=== PATIENT | male | born 1930 | race Caucasian/White ===

== ENCOUNTER 2017-11-23 23:38 | Inpatient (IN) | payer OTHER ==
[2017-11-24 00:30] LABS: Arterial Blood Carboxyhemoglob 0.4 % (0-1.5); Blood Gas Oxyhemoglobin 97.9 % (94-97); Blood O2 Saturation 99.3 % (92-98.5)
--- NOTE | 2017-11-24 01:47 | ER ---
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 Transition of care: patient was not received from another setting of care. Onset of symptoms was November 24, 2017. Risk Assessment: Do you want to hurt yourself or someone else? Patient reports no desire to harm self or others. Initial Sepsis Screen: Does the patient meet any 2 criteria? No. Patient's initial sepsis screen is negative. Does the patient have a suspected source of infection? No. Patient's initial sepsis screen is negative. Care prior to arrival: Medication(s) given: Normal saline infusion, 500 mL, IV initiated. 20 GA, in the left forearm, Oxygen administered. via a non-rebreather mask. 23:30 Method Of Arrival: EMS: [facility] lp1 23:30 Acuity: ADAM 1 lp1 Historical: - Allergies: 11/24 00:26 PENICILLINS; lp1 - Home Meds: 02:56 None [Active]; lp1 - PMHx: 00:26 hypercalcemia; hypotension; LYMPHOMA; lp1 - PSHx: 00:26 Unable to obtain; lp1 - Immunization history:: Adult Immunizations up to date. - Family history:: not pertinent. - Social history:: Smoking status: Patient/guardian denies using tobacco. - Ebola Screening: : No symptoms or risks identified at this time. Screenin:19 Abuse screen: Denies threats or abuse. Denies injuries from another. Nutritional lp1 screening: No deficits noted. Tuberculosis screening: No symptoms or risk factors identified. Fall Risk Total Aaron Fall Scale indicates High Risk Score (45 or more points). Fall prevention measures have been instituted. Side Rails Up X 2 Frequent Obs/Assessments Occuring Family Present and informed to notify staff if the need to leave the bedside As available patient and family educated on Fall Prevention Program and Strategies. Assessment: 00:20 General: Appears ill, unkempt, cachectic, Behavior is unresponsive. Pain: Unable to use lp1 pain scale. Patient is disoriented. responsive to painful stimuli. Neuro: Level of Consciousness is unresponsive, Pupils are PERRLA, sluggish. Cardiovascular: Capillary refill is > 3 seconds is sluggish in bilateral fingers toes. Respiratory: Respiratory effort is even, Respiratory pattern is agonal Breath sounds are clear bilaterally. GI: Abdomen is flat. : No deficits noted. EENT: No deficits noted. Derm: Skin with poor turgor has blisters on Large blister noted to left hip, frail skin Skin is dry, Skin is mottled, pale, Skin temperature is cold. Musculoskeletal: Range of motion: limited in left knee and right knee. 01:30 Reassessment: Patient appears in no apparent distress at this time. No changes from lp1 previously documented assessment. Patient and/or family updated on plan of care and expected duration. Pain level reassessed. 03:04 Reassessment: Patient responsive to voice at this time, nodding yes and no; Patient's lp1 granddaughter and friend are at bedside. 04:15 Reassessment: Patient seems to be uncomfortable at this time; Moaning out loud, unable lp1 to state needs. 05:00 Reassessment: Patient appears in no apparent distress at this time. Patient seems to be lp1 resting, comfortably; Family left at this time; States, Robert, the son patient lives with will come in the morning, phone number is [phone]. 05:00 Neuro: Level of Consciousness is awake. Respiratory: Respiratory effort is even, lp1 Respiratory pattern is regular. Derm: Skin is pale, Skin temperature is warm. Vital Signs: 11/23 23:40 BP 64 / 36; Pulse 67; Resp 19; Temp 89.4(R); Pulse Ox 91% on 15% Non-rebreather mask; lp1 Weight 38.56 kg; 23:50 BP 77 / 39; Pulse 67; Resp 19; Pulse Ox 92% on 15% Non-rebreather mask; lp1 11/24 00:10 BP 77 / 42; Pulse 65; Resp 18; Pulse Ox 99% on 15% Non-rebreather mask; lp1 00:47 BP 78 / 55; Pulse 62; Resp 18; Temp 87.6(R); Pulse Ox 90% on 15% Non-rebreather mask; mt 01:00 BP 70 / 43; Pulse 72; Resp 17; Pulse Ox 88% on 15% Non-rebreather mask; lp1 01:44 BP 64 / 40; Pulse 60; Resp 14; Temp 86.4(C); Pulse Ox 84% on 15% Non-rebreather mask; mt 02:30 BP 80 / 30; Pulse 60; Resp 19; Temp 86.3(C); Pulse Ox 98% on 15% Non-rebreather mask; lp1 02:45 BP 75 / 43; Pulse 69; Resp 18; Temp 86.4(C); Pulse Ox 96% on 15% Non-rebreather mask; lp1 03:02 BP 92 / 47; Pulse 72; Resp 16; Temp 86.7(C); Pulse Ox 95% on 15% Non-rebreather mask; lp1 03:30 BP 98 / 61; Pulse 77; Resp 17; Temp 87.4(C); Pulse Ox 100% on 15% Non-rebreather mask; lp1 03:45 BP 90 / 50; Pulse 100; Resp 22; Temp 87.9(C); Pulse Ox 96% on 15% Non-rebreather mask; lp1 04:09 BP 100 / 46; Pulse 89; Resp 18; Temp 88.8; Pulse Ox 94% on 15% Non-rebreather mask; mt 04:15 BP 100 / 42; Pulse 89; Resp 19; Temp 88.8(C); Pulse Ox 100% on 15% Non-rebreather mask; lp1 04:45 BP 108 / 47; Pulse 96; Resp 19; Temp 89.7(C); Pulse Ox 100% on 15% Non-rebreather mask; lp1 05:15 BP 106 / 46; Pulse 102; Resp 20; Temp 90.6(C); Pulse Ox 100% on R/A; lp1 [place] Coma Score: 11/23 23:40 Eye Response: to pain(2). Verbal Response: incomprehensible(2). Motor Response: lp1 withdraws from pain(4). Total: 8. 11/24 03:01 Eye Response: to voice(3). Verbal Response: incomprehensible(2). Motor Response: lp1 withdraws from pain(4). Total: 9. ED Course: 11/23 23:55 Patient arrived in ED. ms 23:55 Riki Dickinson MD is Attending Physician. [facility] 11/24 00:00 Maintain EMS IV. Dressing intact. Site clean \T\ dry. Gauge \T\ site: 20g left forearm. lp 1 00:00 Thermoregulation: Arash blanket applied. lp1 00:13 Charla Obregon, SUNIL is Primary Nurse. lp1 00:13 Liz cath inserted, using sterile technique, 16 Fr., by manager sharepoint, balloon inflated, to lp1 gravity drainage. 00:17 Triage completed. lp1 00:17 Arm band placed on right wrist. lp1 00:20 Missed attempt(s): 20 gauge in right forearm. Missed attempt(s): 22 gauge in right lp1 forearm. Missed attempt(s): 20 gauge in right antecubital area. 00:25 X-ray completed. Portable x-ray completed in exam room. Patient tolerated procedure kw well. 00:25 XRAY Chest (1 view) In Process Unspecified. EDMS 00:26 Patient has correct armband on for positive identification. Placed in gown. Bed in low lp1 position. Side rails up X2. national park ranger on. Pulse ox on. NIBP on. 01:45 Monica Arriaga MD is Hospitalizing Provider. [facility] 01:45 Inserted saline lock: 22 gauge in left ,using aseptic technique. ankle; By Dorothea lp1 LEXIE Richard. 02:42 Notified ED physician of a critical lab result(s). potassium of 7.1, Bicarb 7.0, bb Creatinine 7.70, Ca 6.8, CKMB 39. Dr Dickinson notified. 02:56 No provider procedures requiring assistance completed. Patient admitted, IV remains in lp1 place. 04:09 NGT: inserted 12 Fr. via right nare. verified placement of air over stomach, Placement bs1 verified by X-ray. 04:20 X-ray completed. Portable x-ray completed in exam room. Patient tolerated procedure kw well. Administered Medications: 02:10 Drug: Cefepime 2 grams Route: IVPB; Rate: 200 ml/hr; Infused Over: 30 mins; Site: left bb forearm; 02:54 Follow up: IV Status: Completed infusion; IV Intake: 100ml lp1 02:10 Drug: NS 0.9% (30 ml/kg) 30 ml/kg Route: IV; Rate: bolus; Site: left forearm; bb 02:54 Follow up: IV Status: Completed infusion; IV Intake: 1000ml lp1 02:10 Drug: SOLU-Medrol 125 mg Route: IVP; Site: left forearm; bb 02:54 Follow up: Response: No adverse reaction lp1 02:12 Drug: Albuterol - atroVENT (3:1) (2.5 mg - 0.5 mg) 3 ml Route: Nebulizer; bb 02:55 Follow up: Response: No adverse reaction; Marked relief of symptoms lp1 02:15 Drug: D5W 1000 ml, Sodium Bicarbonate 150 mEq {Note: left lower extremity.} Route: IV; bb Rate: 100 ml/hr; Site: Other; 02:55 Follow up: IV Status: Infusion continued upon admission lp1 02:54 Drug: vancoMYCIN 1 grams Route: IVPB; Infused Over: 2 hrs; Site: left forearm; lp1 02:55 Follow up: IV Status: Infusion continued upon admission lp1 05:10 Follow up: IV Status: Completed infusion; IV Intake: 250ml lp1 03:30 Drug: Albuterol 7.5 mg Route: Inhalation; lp1 03:35 Drug: Insulin Regular Human 10 units {Co-Signature: bs1 (Dominique Mccarthy RN).} Route: lp1 IVP; Site: left forearm; 04:26 Follow up: Response: No adverse reaction lp1 03:37 Drug: D50W 50 ml Route: IVP; Site: left forearm; lp1 04:25 Follow up: Response: No adverse reaction lp1 03:39 Drug: Sodium Bicarbonate 1 amp Route: IVP; Site: left forearm; lp1 04:25 Follow up: Response: No adverse reaction lp1 04:15 Drug: Calcium Gluconate 1 grams Route: IVPB; Infused Over: 15 mins; Site: left forearm; lp1 05:10 Follow up: IV Status: Completed infusion; IV Intake: 50ml lp1 04:24 Drug: fentaNYL (PF) 25 mcg {Note: left ankle.} Route: IVP; Site: Other; lp1 05:10 Follow up: Response: Marked relief of symptoms lp1 04:24 Drug: Zofran 4 mg {Note: left ankle.} Route: IVP; Site: Other; lp1 05:23 Follow up: Response: No adverse reaction lp1 05:09 Drug: Kayexalate 45 grams {Note: NG tube.} Route: G-Tube; lp1 05:22 Not Given (Patient comfortable): fentaNYL (PF) 25 mcg IVP once lp1 Intake: 02:54 IV: 1000ml; Total: 1000ml. lp1 02:54 IV: 100ml; Total: 1100ml. lp1 05:10 IV: 50ml; Total: 1150ml. lp1 05:10 IV: 250ml; Total: 1400ml. lp1 Outcome: 01:46 Decision to Hospitalize by Provider. anjum 02:59 Condition: deteriorated lp1 02:59 Instructed on the need for admit. 03:11 Admitted to Med/surg accompanied by nurse, accompanied by tech, family with patient, lp1 via stretcher, room 202, with oxygen, with chart, Report called to Radha Anderson RN 05:29 Patient left the ED. lp1 Signatures: Dispatcher [employer] EDRiki Nichole MD MD cha Ballard, Brenda, RN RN Veronica Cevallos ms, Kimberlee kw Pena, Laura, RN RN lp1 Nieves Garcia mt, Brittany, RN RN bs1 Dominique Mccarthy RN bs1 Corrections: (The following items were deleted from the chart) 02:56 00:26 Home Meds: Unable to obtain; lp1 lp1
--- NOTE | 2017-11-24 01:47 | EDPHYS ---
Physician Documentation [facility] Name: Bertrand Arguelles Age: 87 yrs Sex: Male : 1930 Arrival Date: 11/23/2017 Time: 23:55 Bed 4 Private MD: ED Physician Riki Dickinson HPI: 11/24 00:01 This 87 yrs old Male presents to ER via Unassigned with complaints of ams, anjum dyspnea and hypotension. 00:01 The patient has shortness of breath at rest. Onset: The symptoms/episode began/occurred anjum 3 day(s) ago. Duration: The symptoms are continuous, and are steadily getting worse. The patient's shortness of breath is aggravated by coughing, supine position, is alleviated by elevating head, application of supplemental oxygen. thin, wasted white male in moderate distress. Associated signs and symptoms: Pertinent positives: non-productive cough. Severity of symptoms: At their worst the symptoms were severe in the emergency department the symptoms have improved mildly. Onset: The symptoms/episode began/occurred 3 week(s) ago. Historical: - Allergies: 00:26 PENICILLINS; lp1 - Home Meds: 02:56 None [Active]; lp1 - PMHx: 00:26 hypercalcemia; hypotension; LYMPHOMA; lp1 - PSHx: 00:26 Unable to obtain; lp1 - Immunization history:: Adult Immunizations up to date. - Family history:: not pertinent. - Social history:: Smoking status: Patient/guardian denies using tobacco. - Ebola Screening: : No symptoms or risks identified at this time. ROS: 00:03 Eyes: Negative for injury, pain, redness, and discharge. anjum 00:03 Constitutional: Positive for chills, malaise. 00:03 Unable to obtain ROS due to altered mental status, obtunded state, patient distress, patient's inability to understand questions. Exam: 00:03 Head/Face: Normocephalic, atraumatic. anjum 00:03 Eyes: Pupils: equal, round, and reactive to light and accomodation, Extraocular movements: intact throughout, Conjunctiva: normal, Corneas: are normal. 00:03 Cardiovascular: Rate: normal, Rhythm: regular, Pulses: Pulses are 2+ in bilateral radial, brachial, femoral, popliteal, posterior tibial and and dorsalis pedis arteries.. Heart sounds: normal, Edema: is not appreciated, JVD: is not appreciated. Vital Signs: 11/23 23:40 BP 64 / 36; Pulse 67; Resp 19; Temp 89.4(R); Pulse Ox 91% on 15% Non-rebreather mask; lp1 Weight 38.56 kg; 23:50 BP 77 / 39; Pulse 67; Resp 19; Pulse Ox 92% on 15% Non-rebreather mask; lp1 11/24 00:10 BP 77 / 42; Pulse 65; Resp 18; Pulse Ox 99% on 15% Non-rebreather mask; lp1 00:47 BP 78 / 55; Pulse 62; Resp 18; Temp 87.6(R); Pulse Ox 90% on 15% Non-rebreather mask; mt 01:00 BP 70 / 43; Pulse 72; Resp 17; Pulse Ox 88% on 15% Non-rebreather mask; lp1 01:44 BP 64 / 40; Pulse 60; Resp 14; Temp 86.4(C); Pulse Ox 84% on 15% Non-rebreather mask; mt 02:30 BP 80 / 30; Pulse 60; Resp 19; Temp 86.3(C); Pulse Ox 98% on 15% Non-rebreather mask; lp1 02:45 BP 75 / 43; Pulse 69; Resp 18; Temp 86.4(C); Pulse Ox 96% on 15% Non-rebreather mask; lp1 03:02 BP 92 / 47; Pulse 72; Resp 16; Temp 86.7(C); Pulse Ox 95% on 15% Non-rebreather mask; lp1 03:30 BP 98 / 61; Pulse 77; Resp 17; Temp 87.4(C); Pulse Ox 100% on 15% Non-rebreather mask; lp1 03:45 BP 90 / 50; Pulse 100; Resp 22; Temp 87.9(C); Pulse Ox 96% on 15% Non-rebreather mask; lp1 04:09 BP 100 / 46; Pulse 89; Resp 18; Temp 88.8; Pulse Ox 94% on 15% Non-rebreather mask; mt 04:15 BP 100 / 42; Pulse 89; Resp 19; Temp 88.8(C); Pulse Ox 100% on 15% Non-rebreather mask; lp1 04:45 BP 108 / 47; Pulse 96; Resp 19; Temp 89.7(C); Pulse Ox 100% on 15% Non-rebreather mask; lp1 05:15 BP 106 / 46; Pulse 102; Resp 20; Temp 90.6(C); Pulse Ox 100% on R/A; lp1 Lena Coma Score: 11/23 23:40 Eye Response: to pain(2). Verbal Response: incomprehensible(2). Motor Response: lp1 withdraws from pain(4). Total: 8. 11/24 03:01 Eye Response: to voice(3). Verbal Response: incomprehensible(2). Motor Response: lp1 withdraws from pain(4). Total: 9. MDM: 00:03 Data reviewed: [facility] 00:05 [facility] 11/24 00:00 Order name: Basic Metabolic Panel; Complete Time: 03:57 [facility] 11/24 00:00 Order name: CBC with Diff; Complete Time: 03:07 [facility] 11/24 00:00 Order name: Ckmb; Complete Time: 03:57 [facility] 11/24 00:00 Order name: CPK; Complete Time: 03:57 [facility] 11/24 00:00 Order name: LFT's; Complete Time: 03:57 [facility] 11/24 00:00 Order name: Magnesium; Complete Time: 03:57 [facility] 11/24 00:00 Order name: NT PRO-BNP; Complete Time: 03:57 [facility] 11/24 00:00 Order name: PT-INR; Complete Time: 03:07 [facility] 11/24 00:00 Order name: Ptt, Activated; Complete Time: 03:07 [facility] 11/24 00:00 Order name: Troponin (emerg Dept Use Only); Complete Time: 03:07 [facility] 11/24 00:00 Order name: Blood Culture Adult (2) [facility] 11/24 00:00 Order name: Lactate; Complete Time: 03:07 [facility] 11/24 00:00 Order name: ABG; Complete Time: 00:54 [facility] 11/24 00:00 Order name: Procalcitonin; Complete Time: 03:57 [facility] 11/24 00:00 Order name: XRAY Chest (1 view) [facility] 11/24 00:01 Order name: Urine Culture [facility] 11/24 00:37 Order name: Urine Dipstick--Ancillary (enter results) ms 11/24 02:33 Order name: Manual Differential; Complete Time: 03:07 EDMS 11/24 04:09 Order name: XRAY Chest (1 view) bs1 11/24 00:00 Order name: EKG; Complete Time: 00:02 [facility] 11/24 00:00 Order name: Cardiac monitoring; Complete Time: 00:27 [facility] 11/24 00:00 Order name: EKG - Nurse/Tech; Complete Time: 00:27 [facility] 11/24 00:00 Order name: IV Saline Lock; Complete Time: 00:27 [facility] 11/24 00:00 Order name: Labs collected and sent; Complete Time: 01:45 [facility] 11/24 00:00 Order name: O2 Per Protocol; Complete Time: 00:27 [facility] 11/24 00:00 Order name: O2 Sat Monitoring; Complete Time: 00:27 [facility] 11/24 00:00 Order name: Urine Dipstick-Ancillary (obtain specimen); Complete Time: 01:46 [facility] 11/24 00:00 Order name: Liz; Complete Time: 00:27 [facility] 11/24 03:12 Order name: NG Tube; Complete Time: 04:25 anjum Administered Medications: 02:10 Drug: Cefepime 2 grams Route: IVPB; Rate: 200 ml/hr; Infused Over: 30 mins; Site: left bb forearm; 02:54 Follow up: IV Status: Completed infusion; IV Intake: 100ml lp1 02:10 Drug: NS 0.9% (30 ml/kg) 30 ml/kg Route: IV; Rate: bolus; Site: left forearm; bb 02:54 Follow up: IV Status: Completed infusion; IV Intake: 1000ml lp1 02:10 Drug: SOLU-Medrol 125 mg Route: IVP; Site: left forearm; bb 02:54 Follow up: Response: No adverse reaction lp1 02:12 Drug: Albuterol - atroVENT (3:1) (2.5 mg - 0.5 mg) 3 ml Route: Nebulizer; bb 02:55 Follow up: Response: No adverse reaction; Marked relief of symptoms lp1 02:15 Drug: D5W 1000 ml, Sodium Bicarbonate 150 mEq {Note: left lower extremity.} Route: IV; bb Rate: 100 ml/hr; Site: Other; 02:55 Follow up: IV Status: Infusion continued upon admission lp1 02:54 Drug: vancoMYCIN 1 grams Route: IVPB; Infused Over: 2 hrs; Site: left forearm; lp1 02:55 Follow up: IV Status: Infusion continued upon admission lp1 05:10 Follow up: IV Status: Completed infusion; IV Intake: 250ml lp1 03:30 Drug: Albuterol 7.5 mg Route: Inhalation; lp1 03:35 Drug: Insulin Regular Human 10 units {Co-Signature: bs1 (Dominique Mccarthy RN).} Route: lp1 IVP; Site: left forearm; 04:26 Follow up: Response: No adverse reaction lp1 03:37 Drug: D50W 50 ml Route: IVP; Site: left forearm; lp1 04:25 Follow up: Response: No adverse reaction lp1 03:39 Drug: Sodium Bicarbonate 1 amp Route: IVP; Site: left forearm; lp1 04:25 Follow up: Response: No adverse reaction lp1 04:15 Drug: Calcium Gluconate 1 grams Route: IVPB; Infused Over: 15 mins; Site: left forearm; lp1 05:10 Follow up: IV Status: Completed infusion; IV Intake: 50ml lp1 04:24 Drug: fentaNYL (PF) 25 mcg {Note: left ankle.} Route: IVP; Site: Other; lp1 05:10 Follow up: Response: Marked relief of symptoms lp1 04:24 Drug: Zofran 4 mg {Note: left ankle.} Route: IVP; Site: Other; lp1 05:23 Follow up: Response: No adverse reaction lp1 05:09 Drug: Kayexalate 45 grams {Note: NG tube.} Route: G-Tube; lp1 05:22 Not Given (Patient comfortable): fentaNYL (PF) 25 mcg IVP once lp1 Disposition: 11/24/17 01:46 Hospitalization ordered by Monica Arriaga for Inpatient Admission. Preliminary diagnosis are Altered mental status, unspecified, Hypoxemia, Hypotension, Hypothermia, Metabolic acidemia, unspecified, Acute kidney failure, Hyperkalemia, Elevated white blood cell count, Bandemia, Rhabdomyolysis. - Bed requested for Telemetry/MedSurg (Inpatient). - Status is Inpatient Admission. lp1 - Condition is Critical. - Problem is new. - Symptoms are unchanged. UTI on Admission? No Signatures: Dispatcher [employer] EDMS Dina George RN RN mw Anderson, Corey, MD MD cha Sanford, Demi ds1 Nadine Chung RN RN bb Charla Obregon RN RN lp1 Dominique Mccarthy RN bs1 Corrections: (The following items were deleted from the chart) 01:54 01:46 Hospitalization Ordered by Monica Arriaga MD for Inpatient Admission. Preliminary mw diagnosis is Altered mental status, unspecified; Hypoxemia; Hypotension; Hypothermia; Metabolic acidemia, unspecified. Bed requested for Telemetry/MedSurg (Inpatient). Status is Inpatient Admission. Condition is Critical. Problem is new. Symptoms are unchanged. UTI on Admission? No. anjum 02:04 01:54 11/24/2017 01:46 Hospitalization Ordered by Monica Arriaga MD for Inpatient ds1 Admission. Preliminary diagnosis is Altered mental status, unspecified; Hypoxemia; Hypotension; Hypothermia; Metabolic acidemia, unspecified. Bed requested for Telemetry/MedSurg (Inpatient). Status is Inpatient Admission. Condition is Critical. Problem is new. Symptoms are unchanged. UTI on Admission? No. mw 02:56 00:26 Home Meds: Unable to obtain; lp1 lp1 03:09 02:04 11/24/2017 01:46 Hospitalization Ordered by Monica Arriaga MD for Inpatient anjum Admission. Preliminary diagnosis is Altered mental status, unspecified; Hypoxemia; Hypotension; Hypothermia; Metabolic acidemia, unspecified. Bed requested for Telemetry/MedSurg (Inpatient). Status is Inpatient Admission. Condition is Critical. Problem is new. Symptoms are unchanged. UTI on Admission? No. ds1 03:20 03:09 11/24/2017 01:46 Hospitalization Ordered by Monica Arriaga MD for Inpatient anjum Admission. Preliminary diagnosis is Altered mental status, unspecified; Hypoxemia; Hypotension; Hypothermia; Metabolic acidemia, unspecified; Acute kidney failure; Hyperkalemia. Bed requested for Telemetry/MedSurg (Inpatient). Status is Inpatient Admission. Condition is Critical. Problem is new. Symptoms are unchanged. UTI on Admission? No. anjum 03:58 03:20 11/24/2017 01:46 Hospitalization Ordered by Monica Arriaga MD for Inpatient anjum Admission. Preliminary diagnosis is Altered mental status, unspecified; Hypoxemia; Hypotension; Hypothermia; Metabolic acidemia, unspecified; Acute kidney failure; Hyperkalemia; Elevated white blood cell count. Bed requested for Telemetry/MedSurg (Inpatient). Status is Inpatient Admission. Condition is Critical. Problem is new. Symptoms are unchanged. UTI on Admission? No. anjum 05:29 03:58 11/24/2017 01:46 Hospitalization Ordered by Monica Arriaga MD for Inpatient lp1 Admission. Preliminary diagnosis is Altered mental status, unspecified; Hypoxemia; Hypotension; Hypothermia; Metabolic acidemia, unspecified; Acute kidney failure; Hyperkalemia; Elevated white blood cell count; Bandemia; Rhabdomyolysis. Bed requested for Telemetry/MedSurg (Inpatient). Status is Inpatient Admission. Condition is Critical. Problem is new. Symptoms are unchanged. UTI on Admission? No. anjum
[2017-11-24 01:53] LABS: Absolute Lymphocytes (CBC) 0.5 K/uL (0.7-4.9); Absolute Monocytes 0.4 K/uL (0.1-1.3); Absolute Neutrophil 19.4 K/uL (1.8-8.0); Basophils % 0.2 % (0-1.3); Hematocrit 29.3 % (39.6-49.0); Lymphocytes % 2.4 % (15.3-44.8); MCH 32.5 pg (27.0-35.0); MCV 99.5 fL (80-100); MPV 8.3 fL (7.6-11.3); Monocytes % 2.1 % (3.3-12.3); RBC Red Blood Cell Count 2.94 M/uL (4.33-5.43)
[2017-11-24 01:56] LABS: Protime INR 1.14
[2017-11-24] MEDS ORDERED: ALBUTEROL 2.5 MG/3 ML NEB SOL ONE ×2 (01:58→03:26)
[2017-11-24] MEDS ORDERED: IPRATROPIUM BROM 0.5MG/2.5ML ONE (01:58)
[2017-11-24] MEDS ORDERED: CEFEPIME 2 GM VIAL ONE (01:58)
[2017-11-24] MEDS ORDERED: NA CHLORIDE 0.9% 100 ML IV ONE (01:58)
[2017-11-24] MEDS ORDERED: METHYLPREDNISOLONE 125 MG INJ ONE (01:58)
[2017-11-24] MEDS ORDERED: NA CHLORIDE 0.9% 1,000 ML ONE ×3 (01:59→21:56)
[2017-11-24] MEDS ORDERED: VANCOMYCIN 1 GM/250 ML BAG ONE (01:59)
[2017-11-24] MEDS ORDERED: D5W 1,000 ML IV ONE (01:59)
[2017-11-24] MEDS ORDERED: SODIUM BICARB 50 MEQ/50ML VIAL ONE (02:00)
[2017-11-24 02:33] LABS: Blood Morphology Comment NOTED (NOT SEEN); Burr Cells 4+; Platelet Estimate DECR
[2017-11-24] MEDS ORDERED: ACETAMINOPHEN 500 MG TAB PO PRN (02:38)
[2017-11-24] MEDS ORDERED: HYDROCORTISONE SUC 100 MG INJ IV ONE (02:38)
[2017-11-24] MEDS ORDERED: ONDANSETRON 4 MG/2 ML VIAL IV PRN (02:38)
[2017-11-24 02:39] LABS: Albumin 2.1 g/dL (3.4-5.0); Bilirubin Direct 0.5 mg/dL (0-0.2); Bilirubin Total 0.7 mg/dL (0.2-1.0); Magnesium 1.9 mg/dL (1.8-2.4); Protein, Total 6.5 g/dL (6.4-8.2)
[2017-11-24 02:42] LABS: Potassium 7.1 mmol/L (3.5-5.1)
[2017-11-24 02:43] LABS: CKMB Creatine Kinase MB 39.1 ng/mL (0.3-3.6)
[2017-11-24] MEDS ORDERED: NA CHLORIDE 0.9% 1,000 ML IV SCH (03:00)
[2017-11-24] MEDS ORDERED: D5W 1,000 ML with NA BICARB 8.4% 50 MEQ IV SCH ×2 (03:00)
[2017-11-24] MEDS ORDERED: INSULIN -REGULAR HUMAN 50 UNIT/0.5 ML ML ONE (03:26)
[2017-11-24] MEDS ORDERED: SOD POLYSTYREN SUL 15 GM/60 ML UCUP ONE (03:26)
[2017-11-24] MEDS ORDERED: D50W 25 GM/50 ML SYRINGE IV ONE (03:27)
[2017-11-24] MEDS ORDERED: CALCIUM GLUCONATE 1 GM IVPB 1 GM/50 ML BAG IV ONE (03:46)
[2017-11-24] MEDS ORDERED: FENTANYL CITR 100 MCG/2 ML ONE (04:20)
[2017-11-24] MEDS ORDERED: ONDANSETRON 4 MG/2 ML VIAL ONE ×2 (04:21→21:56)
[2017-11-24 04:38] LABS: Urine Blood 2+ (NEG); Urine Glucose NEGATIVE (NEG); Urine Protein TRACE (NEG); Urine Specific Gravity 1.015 (1.005-1.030); Urine pH 5.5 (5.0-7.0)
[2017-11-24] MEDS ORDERED: FENTANYL CITR 100 MCG/2 ML IV PRN (05:58)
--- NOTE | 2017-11-24 06:38 | RAD REPORT ---
EXAM DESCRIPTION: RAD - Chest Single View - 11/24/2017 4:24 am CLINICAL HISTORY: NG tube placement, respiratory distress COMPARISON: November 24 TECHNIQUE: AP portable chest image was obtained 0411 hours . FINDINGS: Resuscitation paddles overlie the chest. Lung parenchyma is prominent but not clearly diff erent from earlier examination. No progressive infiltrate or pulmonary edema. Heart and vasculature a re normal. No measurable pleural effusion and no pneumothorax. NG tube has been placed. Tip is in the proximal stomach. Side hole of the tubing is at the GE junction. No acute aortic findings suspected. IMPRESSION: NG tube tip is in the proximal stomach. Side hole of the tube is at the GE junction.
[2017-11-24] MEDS: IPRATROPIUM BROM 0.5MG/2.5ML NEB SCH ×2 (07:29→13:30)
[2017-11-24] MEDS: ALBUTEROL 2.5 MG/3 ML NEB SOL NEB SCH ×2 (07:29→13:31)
[2017-11-24 07:52] VITALS: O2SAT 99
--- NOTE | 2017-11-24 08:05 | P.HP ---
Certification for Inpatient Patient admitted to: Inpatient With expected LOS: >2 Midnights Patient will require the following post-hospital care: None Practitioner: I am a practitioner with admitting privileges, knowledge of patient current condition, hospital course, and medical plan of care. Services: Services provided to patient in accordance with Admission requirements found in Title 42 Section 412.3 of the Code of Federal Regulations Patient History Date of Service: 11/24/17 Reason for admission: Unresponsive History of Present Illness: Patient is an 79-year-old gentleman who came into the hospital unresponsive. Patient has non-Hodgkin's lymphoma. Patient received his last treatment as stated that he did not want any further treatments. That was a few months ago. Patient has declined since that time. Patient's renal function has been worsening. Patient stated that he did not want any further care and did not want go to the hospital. However, patient's son felt bad and decided to bring him into the emergency room. Patient was in acute renal failure. Patient was severely acidotic. Patient was severely uremic. I spoke with the son on the phone and they decided to proceed with do not resuscitate. They did want assistance with hospice care. Will go ahead and get him admitted to the hospital and proceed with hospice care. Patient has a wound to the left hip. Will place a DuoDerm. Patient may meet criteria for inpatient hospice. Allergies Penicillins Allergy (Verified 12/02/15 20:32) Anaphylaxis Home Medications: NK [No Home Meds] 11/24/17 - Past Medical/Surgical History Diabetic: No -: b cell lymphoma -: Chemo on 09/10/15 -: B-cell lymphoma -: Gall Stones Removed -: Cystoscopy -: Back Surgery/Disk removed - Family History Father Family History: Reviewed- Non-Contributory - Social History Smoking Status: Never smoker Alcohol use: No CD- Drugs: No Caffeine use: No Review of Systems 10-point ROS is otherwise unremarkable Physical Examination - Vital Signs Temperature: 90.6 F Blood Pressure: 106/46 Pulse: 102 Respirations: 20 - Physical Exam General: Alert, In no apparent distress, Oriented x3 HEENT: Atraumatic, PERRLA, Mucous membr. moist/pink, EOMI, Sclerae nonicteric Neck: Supple, 2+ carotid pulse no bruit, No LAD, Without JVD or thyroid abnormality Respiratory: Clear to auscultation bilaterally, Normal air movement Cardiovascular: Regular rate/rhythm, Normal S1 S2, No murmurs Gastrointestinal: Normal bowel sounds, Soft and benign, Non-distended, No tenderness Musculoskeletal: No clubbing, No swelling, No tenderness Integumentary: No rashes Neurological: Normal gait, Normal speech, Normal strength at 5/5 x4 extr, Normal tone, Sensation intact, Cranial nerves 3-12 intact, Normal affect Lymphatics: No axilla or inguinal lymphadenopathy - Studies Laboratory Data (last 24 hrs) 11/24/17 01:35: PT 13.5 H, INR 1.14, APTT 36.1 11/24/17 01:35: WBC 20.4 H*, Hgb 9.6 L, Hct 29.3 L, Plt Count 88 L 11/24/17 01:35: Sodium 141, Potassium 7.1 H*, BUN 164 H, Creatinine 7.70 H*, Glucose 95, Magnesium 1.9, Total Bilirubin 0.7, AST 81 H, ALT 40, Alkaline Phosphatase 394 H Assessment & Plan - Problems (Diagnosis) (1) End stage renal disease Current Visit: Yes Status: Acute (2) Metabolic acidosis Current Visit: Yes Status: Acute (3) Acute renal failure Onset Date: 10/14/15 Current Visit: No Status: Acute (4) Altered mental status, unspecified Onset Date: 10/14/15 Current Visit: No Status: Acute Qualifiers: Altered mental status type: transient alteration of awareness Qualified Code(s): R40.4 - Transient alteration of awareness (5) B-cell lymphoma Onset Date: 03/09/16 Current Visit: No Status: Acute Qualifiers: B-cell lymphoma type: unspecified B-cell Lymphoma site: unspecified region Qualified Code(s): C85.10 - Unspecified B-cell lymphoma, unspecified site (6) COPD (chronic obstructive pulmonary disease) Onset Date: 03/09/16 Current Visit: No Status: Acute Qualifiers: COPD type: COPD with acute exacerbation Qualified Code(s): J44.1 - Chronic obstructive pulmonary disease with (acute) exacerbation (7) COPD exacerbation Current Visit: No Status: Acute - Plan Plan: 1. Spoke with family for an extended length of time. Patient has 2 sons. They are both in agreement that the father would not want anything further to prolong his life. He has told them this recently and he actually did not even want a come to the hospital but they felt helpless at home. We will go ahead and arrange for social work consult and hospice placement. Patient may qualify for inpatient hospice. Continue with gentle hydration and comfort measures at this time. Discharge Plan: Other (hospice) - Advance Directives Does patient have a Living Will: Yes Does patient have a Durable POA for Healthcare: No - Code Status/Comfort Care Code Status: Do Not Resuscitate Critical Care: No Time Spent Managing PTS Care (In Minutes): 50
--- NOTE | 2017-11-24 08:12 | RAD REPORT ---
EXAM DESCRIPTION: RAD - Chest Single View - 11/24/2017 12:27 am CLINICAL HISTORY: Unresponsive, cough, stage IV lymphoma COMPARISON: February 2016 TECHNIQUE: AP portable chest image was obtained 0012 hours . FINDINGS: Fibrotic lung pattern is present. No focal mass or consolidation. No mediastinal or hilar bulky lymphadenopathy seen. Failure and volume overload are not suspected. Patient has a baseline pro minence of the interstitial markings. This could potentially mask an early edema or infiltrate proces s. Heart and vasculature are normal. No measurable pleural effusion and no pneumothorax. No gross bon y abnormality seen. No acute aortic findings suspected. IMPRESSION: No focal consolidation, mass or significant failure finding. Patient has prominence of the interstitial markings that could potentially mask early infiltrate.
[2017-11-24] MEDS ORDERED: LORazepam 2 MG/ML VIAL IV PRN (08:38)
[2017-11-24] MEDS ORDERED: ENOXAPARIN 30 MG/0.3 ML SQ SCH (09:00)
[2017-11-24] MEDS ORDERED: HYDROCORTISONE SUC 100 MG INJ IV SCH (09:00)
--- NOTE | 2017-11-24 09:02 | EKG ---
Test Date: 2017-11-24 Test Time: 00:54:23 Life Agent: HERRERA MEASUREMENT RESULTS: Intervals: Rate: 60 FL: 230 QRSD: 124 QT: 494 QTc: 494 [place]: P: 84 FL: 230 QRS: 90 T: 63 INTERPRETIVE STATEMENTS: Sinus rhythm with 1st degree AV block vertical axis Nonspecific intraventricular conduction delay Borderline ECG Compared to ECG 03/09/2016 07:11:17 Intraventricular conduction delay now present Electronically Signed On 11-24-17 09:01:29 CDT by Quentin Edwards
[2017-11-24] MEDS ORDERED: D5W 1,000 ML with NA BICARB 8.4% 150 MEQ IV SCH ×2 (10:00)
[2017-11-24] MEDS ORDERED: SODIUM BICARB 50 MEQ/50ML VIAL IV ONE (10:08)
[2017-11-24 10:23] LABS: Magnesium 1.8 mg/dL (1.8-2.4); Phosphorus 8.4 mg/dL (2.5-4.9); Potassium 4.8 mmol/L (3.5-5.1)
--- NOTE | 2017-11-24 14:17 | CON ---
Date of Consultation: 11/24/2017 Chief Complaint: Acute kidney injury, severe, associated with hyperkalemia, metabolic acidosis, uremia. The patient was brought to emergency room last night and Nephrology consultation was requested for hyperkalemia and metabolic acidosis. The patient was found to have severe azotemia. BUN is up to 160. The patient remains on non-rebreather mask. He is very lethargic, unresponsive. He has non-Hodgkin lymphoma. The patient received treatment as stated by his family members to the attending and he did not want any further treatments. It was few months ago. The patient has declined chemotherapy for treatment of over last few months. Renal function has worsened. Blood work obtained in the hospital showed severe acidosis. The patient was started on bicarb drip and received Kayexalate for treatment of hyperkalemia. Family members were requesting hospice care for this patient. Hospice care is pending at this point. Review of Systems: Unobtainable. The patient is very lethargic. Past Medical History: B-cell lymphoma, chemotherapy on September 10, 2015, started, cystoscopy, back surgery, disk removed. Family History: Unobtainable. Social History: Unobtainable. Physical Examination: Vital Signs: Blood pressure 106/46, heart rate 102. Eyes: No hemorrhagic changes. Ears, Nose, Mouth and Throat: No bleeding. Neck: supple , no JVD Respiratory: Clear to auscultation bilaterally. Cardiovascular: S1, S2. No pericardial friction rub GI: Normal bowel sounds. No guarding Musculoskeletal: No clubbing, no swelling, no tenderness. Neurological: Moving extremities.No cellulitis SKIN : warm and dry , no oozing Laboratory Data: WBC 20.4, hemoglobin 9.6, hematocrit 29.3, platelet count 80. Laboratory Data: Sodium 141, potassium 7.1, BUN 164, creatinine 7.7, glucose 95 , magnesium 1.9, total bilirubin 0.7. Impression And Plan: 1. Acute kidney injury with severe uremia. A previous tests for renal function obtained in the past showed evidence of some chronic kidney disease stage 3. Today, the patient was found to have severe azotemia, uremia, and hyperkalemia which is corresponding with severe metabolic changes and acute kidney injury. I recommend to start sodium bicarbonate drip with 150 mEq of sodium bicarbonate per liter at 75 cc/hour. The patient already was taking sodium bicarbonate drip with sodium bicarbonate 50 mEq/L. The patient received Kayexalate. I ordered a basic metabolic panel, phosphorus and magnesium. 2. Hypotension. Continue fluids for volume resuscitation, pending comfort care status. 3. Leukocytosis is severely elevated, likely the patient has element of sepsis. There is a lactic acid elevation as well as procalcitonin. Overall prognosis is poor. I was informed by the nurse that requested for comfort care is in the pending status. Family is not at the bedside. According to attending note, family requested comfort care, but at the same time nephrology consultation was requested for hyperkalemia, so the patient will continue IV fluids at this point with bicarbonate drip to control severe hyperkalemia and metabolic acidosis. Uremia is severe. Urine output has not improved significantly. Likely, the patient has severe prerenal azotemia and acute tubular necrosis. Urine output is 500 over last few hours. Continue to monitor when comfort care in the pending status. EB/MODL Voice ID: [id number] Report ID: [id number]
[2017-11-24 15:16] VITALS: BP 62/30; TEMP 96.2
--- NOTE | 2017-11-24 16:30 | P.PN ---
Subjective Date of Service: 11/24/17 Chief Complaint: Unresponsive The patient ceased breathing 16:25PM. Exam bedside, No breathing soud or heart sound; No pupil reactions to light. He was pronouced due to cardiac arrest due to hyperka;emia due to ESRD Discussed with family. Physical Examination - Vital Signs Temperature: 96.2 F Blood Pressure: 62/30 Pulse: 100 Respirations: 16 Pulse Ox (%): 100 - Studies Laboratory Data (last 24 hrs) 11/24/17 01:35: PT 13.5 H, INR 1.14, APTT 36.1 11/24/17 01:35: WBC 20.4 H*, Hgb 9.6 L, Hct 29.3 L, Plt Count 88 L 11/24/17 01:35: Sodium 141, Potassium 7.1 H*, BUN 164 H, Creatinine 7.70 H*, Glucose 95, Magnesium 1.9, Total Bilirubin 0.7, AST 81 H, ALT 40, Alkaline Phosphatase 394 H Microbiology Data (last 24 hrs): 11/24/17 01:35 Blood - Blood Anaerobic Blood Culture - Final
--- NOTE | 2017-11-24 17:29 | P.DS ---
Admission Date: 11/24/17 Discharge Date: 11/24/17 Discharge Condition: Reason for Admission: Unresponsive - Problems (1) End stage renal disease Current Visit: Yes Status: Acute (2) Altered mental status, unspecified Onset Date: 10/14/15 Current Visit: No Status: Acute Qualifiers: Altered mental status type: transient alteration of awareness Qualified Code(s): R40.4 - Transient alteration of awareness (3) B-cell lymphoma Onset Date: 03/09/16 Current Visit: No Status: Acute Qualifiers: B-cell lymphoma type: unspecified B-cell Lymphoma site: unspecified region Qualified Code(s): C85.10 - Unspecified B-cell lymphoma, unspecified site Hospital Course: The patient ceased breathing 16:25PM. Exam bedside, No breathing soud or heart sound; No pupil reactions to light. He was pronounced due to cardiac arrest due to hyperkalemia due to ESRD Discussed with family Vital Signs/Physical Exam: Temp Pulse Resp BP Pulse Ox 96.2 F L 100 H 16 62/30 L 100 11/24/17 16:29 11/24/17 16:29 11/24/17 16:29 11/24/17 16:29 11/24/17 16:29 Laboratory Data at Discharge: WBC 20.4 K/uL (4.3-10.9) H* 11/24/17 01:35 Hgb 9.6 g/dL (13.6-17.9) L 11/24/17 01:35 Hct 29.3 % (39.6-49.0) L 11/24/17 01:35 Plt Count 88 K/uL (152-406) L 11/24/17 01:35 PT 13.5 SECONDS (9.5-12.5) H 11/24/17 01:35 INR 1.14 11/24/17 01:35 APTT 36.1 SECONDS (24.3-36.9) 11/24/17 01:35 Sodium 147 mmol/L (136-145) H 11/24/17 09:18 Potassium 4.8 mmol/L (3.5-5.1) 11/24/17 09:18 BUN 163 mg/dL (7-18) H 11/24/17 09:18 Creatinine 7.30 mg/dL (0.55-1.3) H* 11/24/17 09:18 Glucose 169 mg/dL (74-106) H 11/24/17 09:18 Phosphorus 8.4 mg/dL (2.5-4.9) H 11/24/17 09:18 Magnesium 1.8 mg/dL (1.8-2.4) 11/24/17 09:18 Total Bilirubin 0.7 mg/dL (0.2-1.0) 11/24/17 01:35 AST 81 U/L (15-37) H 11/24/17 01:35 ALT 40 U/L (12-78) 11/24/17 01:35 Alkaline Phosphatase 394 U/L (45-117) H 11/24/17 01:35 Home Medications: NK [No Home Meds] 11/24/17
[2017-11-24] MEDS ORDERED: METOPROLOL TAR 50 MG TAB ONE (21:55)
[2017-11-24] MEDS ORDERED: ASPIRIN 81 MG CHEWABLE TABLET ONE (21:55)
[2017-11-24] MEDS ORDERED: CEFTRIAXONE/SWI 1gm 1 GM/10 ML SYR ONE (21:56)
[2017-11-24] MEDS ORDERED: MORPHINE 4 MG/ML SYR ONE (21:56)
[2017-11-24] MEDS ORDERED: ENOXAPARIN 100 MG/ML SYR SQ ONE (21:56)
== END 2017-11-24 16:23 | disposition expired | DRG 871 ==
LOC: ER 23:38 → ERHOLD 11-24 01:47 → 2ND 11-24 03:12
PROVIDERS: ADMIT Hospitalist; ATTEND Hospitalist
DX: A41.9 Sepsis, unspecified organism (principal); N18.6 End stage renal disease; N17.0 Acute kidney failure with tubular necrosis; C85.10 Unspecified B-cell lymphoma, unspecified site; E87.2 Acidosis; J44.1 Chronic obstructive pulmonary disease with (acute) exacerbation; M62.82 Rhabdomyolysis; R65.20 Severe sepsis without septic shock; I46.9 Cardiac arrest, cause unspecified; I95.9 Hypotension, unspecified; R09.02 Hypoxemia; D72.829 Elevated white blood cell count, unspecified; E87.5 Hyperkalemia; E83.51 Hypocalcemia; Z66 Do not resuscitate; Z88.0 Allergy status to penicillin
CPT/HCPCS: 36415; 51702; 71045; 80048; 80076; 81003; 82550; 82553; 82805; 82962; 83605; 83735; 83880; 84100; 84145; 84484; 85025; 85610; 85730; 87040; 87086; 87088; 93005; 94640; 99291; 99292; J0610; J0692; J0696; J1650; J2405; J2930; J3010; J3370; J7030